=== PATIENT | female | born 1985 | race Caucasian/White ===

== ENCOUNTER → 2021-02-21 10:51 | Outpatient (CLI) | payer BC, SELFPAY | PROVIDERS: Visit Provider Nurse Practitioner | DX: Z20.822 Contact with and (suspected) exposure to COVID-19 (principal) | CPT/HCPCS: C9803; U0003; U0005 ==

== ENCOUNTER → 2021-03-17 08:04 | Outpatient (CLI) | payer BC, SELFPAY ==
[2021-03-18 08:55] LABS: Covid-19 Nasal PCR Sendout Lex POSITIVE
== END ==
PROVIDERS: Visit Provider Nurse Practitioner
DX: U07.1 COVID-19 (principal)
CPT/HCPCS: C9803; U0004; U0005

== ENCOUNTER 2023-04-05 15:48 | Outpatient (CLI) | payer BC, SELFPAY ==
--- NOTE | 2023-04-05 15:49 | US_ITS ---
PROCEDURE: US TRANSVAGINAL CLINICAL INDICATION: Heavy Bleeding, Abnormal Uterine/Vag Bleeding COMPARISON: No exams were available for comparison FINDINGS: Transvaginal sonographic images of the pelvis were obtained. UTERUS: 9.6 cm x 6.2cmx 5.4cm anteverted with a combined endometrial thickness of 16mm. The endometrium has a cystic appearance. Concerning for hyperplasia or carcinoma. There are a few small hyperechoic areas at the inferior aspect of the right side of the endometrium. There is a posterior fibroid measuring 2.0 cm x 2.1 cm x 2.7 cm. LEFT OVARY: 2.3cmx2.1cmx1.6cm with a volume of 4ml. There are several small follicles in the left ovary. The largest measures 8.8 cm. There are significant varicosities in the left adnexa. RIGHT OVARY: 4.5cmx 4.0cmx2.6 cm with a volume of 24.5ml. Within the right ovary is a follicle measuring 3.2 cm x 1.9 cm x 3.8 cm Both ovaries are seen and appear normal. Doppler flow to both ovaries are seen. There is no fluid in the cul-de-sac. IMPRESSION: 1. Anteverted uterus normal in shape and size. There is a posterior fibroid measuring 2.7 cm 2. The endometrium is thickened and has some cystic areas worrisome for hyperplasia or carcinoma. Suggest endometrial sampling. 3. The left ovary is seen and appears normal. There is significant varicosities in the left adnexa. Possibly consistent with pelvic congestion. 4. Within the right ovary is a follicle measuring 3.2 cm. Dictated by: David Aguirre MD 04/05/2023 16:59 David Aguirre MD in [facility] 04/05/2023 16:59
== END 2023-04-05 23:59 ==
LOC: RAD 15:49
PROVIDERS: PCP Family Medicine; Visit Provider Nurse Practitioner Obstetrics & Gynecology
DX: N92.0 Excessive and frequent menstruation with regular cycle (principal); N93.9 Abnormal uterine and vaginal bleeding, unspecified
CPT/HCPCS: 76830

== ENCOUNTER 2023-06-25 14:35 | Outpatient (CLI) | payer BC, SELFPAY ==
--- NOTE | 2023-06-25 14:35 | US_ITS ---
PROCEDURE INFORMATION: Exam: US Right Breast, Complete US Left Breast, Complete Exam date and time: 06/25/2023 2:36 PM Age: 38 years old Clinical indication: Fibrocystic breasts. Screening ultrasound was requested TECHNIQUE: Imaging protocol: Complete ultrasound of all four quadrants of the right breast and the retroareolar regions, including ultrasound of the axilla when performed. Complete ultrasound of all four quadrants of the left breast and the retroareolar regions, including ultrasound of the axilla when performed. COMPARISON: No relevant prior studies available. FINDINGS: ULTRASOUND: Breast ultrasound findings: Bilateral 4 quadrant and retroareolar breast ultrasound and bilateral axilla ultrasound Heterogeneously hypoechoic morphologically similar appearing complex masses are present as follows: 0.8 x 0.5 x 0.5 cm left 5 o'clock 6 cm from the nipple 1.0 x 0.7 x 0.4 cm left 10 o'clock 5 cm from the nipple 0.7 x 0.6 x 0.3 cm left 10 o'clock 4 cm from the nipple 0.9 x 0.5 x 0.3 cm 3 o'clock left periareolar Numerous simple and complicated benign cysts are present throughout bilateral breasts, the largest on the right measuring 1.5 cm in the largest on the left measuring 0.9 cm No morphologically suspicious or dominant mass is present within either breast No distortion or shadowing IMPRESSION: Six-month follow-up left breast ultrasound is recommended to document stability of 4 morphologically similar appearing complex masses along the 5 o'clock, 10 o'clock, and 3 o'clock axis Only benign findings are present within the right breast ASSESSMENT: BI-RADS category 3: Probably benign
== END 2023-06-25 23:59 | disposition home or self-care (01) ==
LOC: RAD 14:35
PROVIDERS: PCP Family Medicine; Visit Provider Nurse Practitioner Obstetrics & Gynecology
DX: N60.11 Diffuse cystic mastopathy of right breast (principal); N60.12 Diffuse cystic mastopathy of left breast
CPT/HCPCS: 76641